=== PATIENT | female | born 1955 | race Hispanic/Latino ===

== ENCOUNTER 2017-10-20 20:15 | Emergency (ER) | payer MEDICARE ==
[~2017-10-20] VITALS: Ht 167.6 cm; Wt 129.7 kg
[~2017-10-20 20:15] MED LIST: ADULT LOW DOSE81 MG PO; ADVAIR 250-501 EACH INH; ALBUTEROL INH; ALBUTEROL2.5 MG/3 M INH; ALLOPURINOL300 MG PO; ATENOLOL50 MG PO; DICYCLOMINE HCL10 MG PO; GABAPENTIN300 MG PO; GLUCOPHAGE1000 MG PO; GLUCOTROL10 MG PO; KLONOPIN0.5 MG PO; KOMBIGLYZE XR1 EACH PO; LANTUS100 UNITS/ SQ; LOSARTAN POTAS100 MG PO; LYRICA150 MG PO; NAPROXEN250 MG PO; OMEGA 3 1,0001 EACH PO; SERTRALINE HCL50 MG PO; SUCRALFATE1 GM PO; ULTRAM50 MG PO; UROCIT-K10 MEQ PO; ZYLOPRIM300 MG PO; [UNRECOGNIZED DRUG - OTHER] TOP
[2017-10-20] MEDS ORDERED: ONDANSETRON HCL INJ 2 MG/ML VIAL IV STA (20:20)
[2017-10-20] MEDS ORDERED: DIATRIZOATE MEGL/DIATRIZOA SOD 30 ML BTL PO ONE (20:27)
[2017-10-20] MEDS ORDERED: SODIUM CHLORIDE 0.9% 1000ML 1,000 ML IV ONE (20:30)
[2017-10-20] MEDS ORDERED: PANTOPRAZOLE 40 MG 10ML VIAL IV ONE (20:30)
[2017-10-20 20:47] LABS: BASOPHILS % 0.3 % (0.0-1.0); EOSINOPHILS # (AUTO) 0.2 (0.0-0.4); EOSINOPHILS % 2.6 % (0.0-6.0); HEMATOCRIT 41.1 % (34.2-44.1); HEMOGLOBIN 13.3 g/dL (12.0-16.0); LYMPHOCYTES % 31.6 % (18.0-39.1); MEAN CORPUSCULAR HEMOGLOBIN 29.6 pg (28-32); MEAN CORPUSCULAR HGB CONC 32.4 g/dL (31-35); MEAN CORPUSCULAR VOLUME 91.3 fL (81-99); MONOCYTES # (AUTO) 0.4 (0.2-0.8); MONOCYTES % 5.8 % (4.4-11.3); NEUTROPHILS # (AUTO) 3.8 (2.1-6.9); NEUTROPHILS % 59.5 % (38.7-80.0); PLATELET COUNT 157 x10e3/uL (140-360); RED CELL DISTRIBUTION WIDTH 13.3 % (11.7-14.4)
[2017-10-20 20:48] LABS: CLARITY,URINE SL CLOUDY (CLEAR); COLOR,URINE YELLOW (YELLOW); KETONES,URINE TRACE (NEGATIVE); LEUKOCYTE ESTERASE ,URINE NEGATIVE (NEGATIVE); NITRITE,URINE NEGATIVE (NEGATIVE); PROTEIN,URINE DIPSTICK 1+ (NEGATIVE); URINE UROBILINOGEN 0.2 mg/dL (0.2 - 1)
[2017-10-20 20:49] LABS: BILIRUBIN,URINE 2+ (NEGATIVE)
[2017-10-20 20:59] LABS: AMORPHOUS SEDIMENT,URINE MODERATE (FEW); BACTERIA,URINE MANY /HPF; EPITHELIAL CELLS,URINE MANY /LPF
[2017-10-20 21:10] LABS: ALBUMIN 3.9 g/dL (3.5-5.0); CALCIUM 10.1 mg/dL (8.4-10.2); CREATININE, SERUM 1.52 mg/dL (0.57-1.11)
[2017-10-20 21:17] LABS: CREATINE KINASE MB 0.8 ng/mL (0-5.0)
--- NOTE | 2017-10-20 22:37 | Diagnostic Imaging Report ---
EXAM: CT Abdomen and Pelvis WITHOUT contrast INDICATION: Abdominal pain. COMPARISON: None. TECHNIQUE: Abdomen and pelvis were scanned utilizing a multidetector helical scanner from the lung base to the pubic symphysis without administration of IV contrast. Absence of intravenous contrast decreases sensitivity for detection of focal lesions and vascular pathology. Coronal and sagittal reformations were obtained. Routine protocol was performed. IV CONTRAST: None. ORAL CONTRAST: Gastrografin RADIATION DOSE: Total DLP: 828 mGy*cm Estimated effective dose: (DLP x 0.015 x size factor) mSv COMPLICATIONS: None FINDINGS: LINES and TUBES: None. LOWER THORAX: Unremarkable HEPATOBILIARY: No focal hepatic lesions. No biliary ductal dilation. GALLBLADDER: There are cholecystectomy clips. SPLEEN: No splenomegaly. PANCREAS: No focal masses or ductal dilatation. ADRENALS: No adrenal nodules KIDNEYS/URETERS: The kidneys appear lobular with evidence of cortical thinning predominantly in the right. No hydronephrosis. No cystic or solid mass lesions. There is a 5 mm stone in the inferior renal collecting system of the right kidney. Additional punctate calcifications noted bilaterally. GI TRACT: No abnormal distention, wall thickening, or evidence of bowel obstruction. Appendix is normal. PELVIC ORGANS/BLADDER: There are postop changes of hysterectomy and bilateral oophorectomies. LYMPH NODES: No lymphadenopathy. VESSELS: There is mild atherosclerotic disease in the aorta and major arterial branches. PERITONEUM / RETROPERITONEUM: No free air or fluid. BONES: There are mild degenerative changes in the lumbar spine. SOFT TISSUES: Minimal periumbilical fat stranding best seen on series 2, image 63 . Small eventration due to rectus abdominis muscle diastases in the umbilical region. IMPRESSION: 1. No acute intra-abdominal or pelvic abnormality. 2. 5 mm nephrolithiasis in the intrarenal collecting system of the right kidney. 3. Diffuse hepatic steatosis. Signed by: Dr. Qamar Cochran M.D. on 10/20/2017 10:34 PM
== END 2017-10-20 22:50 | disposition home or self-care (01) ==
LOC: ER 20:15
DX: R10.10 Upper abdominal pain, unspecified (principal); R19.7 Diarrhea, unspecified; R11.0 Nausea; I10 Essential (primary) hypertension; E11.9 Type 2 diabetes mellitus without complications; Z85.42 Personal history of malignant neoplasm of other parts of uterus
CPT/HCPCS: 36415; 74176; 80053; 81001; 82150; 82550; 82553; 83690; 84484; 85025; 99284; J2405; J7030

== ENCOUNTER → 2017-11-17 | Outpatient (CLI) | payer MEDICARE ==
--- NOTE | 2017-11-18 09:12 | Diagnostic Imaging Report ---
Exam: Bone mineral density study. History: Osteopenia. Comparison: None Discussion: Evaluation of the left hip and lumbar spine was performed utilizing DEXA Hologic bone densitometer. The study is technically adequate. Left hip total bone mineral density: 1.090gm/cm2, T-score is 1.0, Z-score is 2.0. Left hip femoral neck bone mineral density: 0.949gm/cm2, T-score is 0.6, Z-score is 2.0. Lumbar spine total bone mineral density:1.040gm/cm2, T-score is-0.1, Z-score is 1.5. Impression: 1. Normal bone mineral density of the left hip, fracture risk is not increased. 2. Normal bone mineral density of the lumbar spine, fracture risk is not increased. Least significant change (LSC) for bone mineral density as provided by athletic turf worker is 0.023 g/cm2 for lumbar spine and 0.027 g/cm2 for total hip. The patient's fracture risk is compared to an age-matched control. Medical evaluation for secondary causes of low bone bone mineral density may be appropriate. Correlate clinically for the necessity and timing of the next bone mineral density study. Signed by: Dr. Dee Gallegos M.D. on 11/18/2017 9:09 AM
== END ==
LOC: MAMMO 13:06
PROVIDERS: ATTEND Specialist
DX: Z12.31 Encounter for screening mammogram for malignant neoplasm of breast (principal); Z13.820 Encounter for screening for osteoporosis
CPT/HCPCS: 77067; 77080

== ENCOUNTER → 2019-12-18 | Outpatient (CLI) | payer MEDICARE ==
--- NOTE | 2019-12-18 16:48 | Diagnostic Imaging Report ---
EXAM: CT Abdomen and Pelvis WITHOUT intravenous contrast INDICATION: ^[id number] ^[id number] ^HISTORY OF URNINARY CALCULUS. COMPARISON: 10/20/2017 TECHNIQUE: Abdomen and pelvis were scanned utilizing a multidetector helical scanner from the lung base to the pubic symphysis without administration of IV contrast. Coronal and sagittal reformations were obtained. Routine technique was performed. IV CONTRAST: None ORAL CONTRAST: None COMPLICATIONS: None RADIATION DOSE: Total DLP: 776 mGy*cm Dose modulation, iterative reconstruction, and/or weight based adjustment of the mA/kV was utilized to reduce the radiation dose to as low as reasonably achievable. FINDINGS: LOWER THORAX: Normal. HEPATOBILIARY: No focal hepatic lesions. No biliary ductal dilatation. Gallbladder is surgically absent. SPLEEN: No splenomegaly. PANCREAS: No focal masses or ductal dilatation. ADRENALS: No adrenal nodules. KIDNEYS/URETERS: There is a right interpolar 4. 5 mm calculus. A punctate 1 mm interpolar stone is noted on the right (axial image 48). Ureters are not dilated. No surrounding inflammatory changes are noted. Negative for hydronephrosis. Negative for ureteral stone is negative for bladder stone. PELVIC ORGANS/BLADDER: Urinary bladder is unremarkable. Uterus is surgically absent. Ovaries are surgically absent. PERITONEUM / RETROPERITONEUM: No free air or fluid. LYMPH NODES: No lymphadenopathy. VESSELS: Negative for abdominal aortic aneurysm. GI TRACT: Limited due to lack of oral and IV contrast. Negative for small bowel obstruction. No surrounding inflammatory changes are noted. Portions of the colon are decompressed limiting evaluation. Normal appendix is noted. BONES AND SOFT TISSUES: No acute osseous abnormality. Focal moderate degenerative changes noted at L5-S1 with vacuum phenomenon and facet arthropathy. No suspicious destructive lesion is identified. Soft tissues are unremarkable. IMPRESSION: Right interpolar 4-5 mm calculus, not significantly changed since prior exam. Additional punctate 1 mm interpolar stone is also visualized, not confidently visualized on the prior exam. Negative for hydronephrosis. Negative for ureteral or bladder stone. Signed by: Pedro Pablo Santos MD on 12/18/2019 4:45 PM
== END ==
LOC: CT 15:53
PROVIDERS: ATTEND Urology
DX: N20.0 Calculus of kidney (principal)
CPT/HCPCS: 74176

== ENCOUNTER → 2020-03-05 | Day surgery (SDC) | payer MEDICARE ==
[~2020-03-05] MED LIST changes: +ALBUTEROL0.63 MG/3 NEB; +DEXTROSE 5% 250ML 250 ML IV ONE; +FAMOTIDINE 20 MG/2 ML VIAL IV ONE; +GLIMEPIRIDE4 MG PO; +JANUVIA100 MG PO; +LIDOCAINE HCL 2% LOCAL INJ 5 ML SDV VIAL INJ ONE; +METOCLOPRAMIDE HCL 10 MG/2ML VIAL ONE; +PROPOFOL IV EMULSION 10 MG/ML 20 ML VIAL ONE; +SODIUM CHLORIDE 0.9% 50ML 50 ML ONE; +TRULICITY0.75 MG/0. SC; +VIT D3 PO
[2020-03-05 13:07] VITALS: BP 136/81
== END | disposition home or self-care (01) ==
LOC: OR 09:35
PROVIDERS: ATTEND Internal Medicine Gastroenterology
DX: K29.70 Gastritis, unspecified, without bleeding (principal); K21.00 Gastro-esophageal reflux disease with esophagitis, without bleeding; K44.9 Diaphragmatic hernia without obstruction or gangrene; R19.7 Diarrhea, unspecified; R63.0 Anorexia; E11.22 Type 2 diabetes mellitus with diabetic chronic kidney disease; I12.9 Hypertensive chronic kidney disease with stage 1 through stage 4 chronic kidney disease, or unspecified chronic kidney disease; N18.9 Chronic kidney disease, unspecified; J45.909 Unspecified asthma, uncomplicated; M19.90 Unspecified osteoarthritis, unspecified site; F32.9 Major depressive disorder, single episode, unspecified; Z88.6 Allergy status to analgesic agent; Z88.8 Allergy status to other drugs, medicaments and biological substances; Z01.810 Encounter for preprocedural cardiovascular examination; Z01.812 Encounter for preprocedural laboratory examination; Z20.822 Contact with and (suspected) exposure to COVID-19; Z79.4 Long term (current) use of insulin; Z68.42 Body mass index [BMI] 45.0-49.9, adult; Z83.79 Family history of other diseases of the digestive system
CPT/HCPCS: 36415; 43239; 82948; 88305; 88312; 93005; J2001; J2704; J2765; J7070; U0002

== ENCOUNTER 2020-06-26 19:27 | Observation (INO) | payer MEDICARE ==
[~2020-06-26] VITALS: Ht 167.6 cm; Wt 140.2 kg
[~2020-06-26 19:27] MED LIST changes: -DEXTROSE 5% 250ML 250 ML IV ONE; -FAMOTIDINE 20 MG/2 ML VIAL IV ONE; -LIDOCAINE HCL 2% LOCAL INJ 5 ML SDV VIAL INJ ONE; -METOCLOPRAMIDE HCL 10 MG/2ML VIAL ONE; -PROPOFOL IV EMULSION 10 MG/ML 20 ML VIAL ONE; -SODIUM CHLORIDE 0.9% 50ML 50 ML ONE
[2020-06-26] MEDS ORDERED: ASPIRIN 81 MG CHEW TAB PO ONE ×2 (19:45→22:15)
[2020-06-26 19:59] LABS: BASOPHILS % 0.4 % (0.0-1.0); EOSINOPHILS # (AUTO) 0.3 (0.0-0.4); EOSINOPHILS % 5.5 % (0.0-6.0); HEMATOCRIT 36.5 % (34.2-44.1); HEMOGLOBIN 11.4 g/dL (12.0-16.0); LYMPHOCYTES # (AUTO) 2.1 (1.0-3.2); LYMPHOCYTES % 40.3 % (18.0-39.1); MEAN CORPUSCULAR HEMOGLOBIN 29.2 pg (28-32); MEAN CORPUSCULAR HGB CONC 31.2 g/dL (31-35); MEAN CORPUSCULAR VOLUME 93.6 fL (81-99); MONOCYTES # (AUTO) 0.4 (0.2-0.8); MONOCYTES % 6.6 % (4.4-11.3); NEUTROPHILS # (AUTO) 2.5 (2.1-6.9); NEUTROPHILS % 46.6 % (38.7-80.0); PLATELET COUNT 183 x10e3/uL (140-360); RED CELL DISTRIBUTION WIDTH 13.6 % (11.7-14.4)
[2020-06-26 20:04] LABS: INR 0.82; PROTHROMBIN TIME 11.9 seconds (11.9-14.5)
[2020-06-26 20:05] LABS: PARTIAL THROMBOPLASTIN TIME 26.6 seconds (23.8-35.5)
[2020-06-26 20:13] LABS: ALANINE AMINOTRANSFERASE 19 IU/L (0-55); ALBUMIN 3.3 g/dL (3.5-5.0); ALBUMIN/GLOBULIN RATIO 0.9 (0.8-2.0); ALKALINE PHOSPHATASE 105 IU/L (40-150); ANION GAP 14.9 mmol/L (8-16); BLOOD UREA NITROGEN 26 mg/dL (7-26); BUN/CREATININE RATIO 18 (6-25); CALCIUM 9.8 mg/dL (8.4-10.2); CARBON DIOXIDE 28 mmol/L (22-29); CHLORIDE 106 mmol/L (98-107); CREATINE KINASE 56 IU/L (29-168); CREATININE, SERUM 1.47 mg/dL (0.57-1.11); EST GLOMERULAR FILTRATION RATE 36 ML/MIN (60-); GLUCOSE 98 mg/dL (74-118); POTASSIUM 4.9 mmol/L (3.5-5.1); SODIUM 144 mmol/L (136-145)
[2020-06-26] MEDS ORDERED: SODIUM CHLORIDE FLUSH 10 ML SYR INJ PRN (22:15)
[2020-06-26] MEDS ORDERED: ONDANSETRON HCL INJ 2MG/ML 2ML 2 MG/ML VIAL IV PRN (22:15)
[2020-06-27] VITALS (10 sets, daily range): BP systolic 118–139; BP diastolic 56–79
[2020-06-27] MEDS: DEXTROSE 50% SYRINGE 50 ML IV PRN ×2 (00:10→06:45)
[2020-06-27] MEDS ORDERED: GABAPENTIN 300 MG CAP PO ONE (01:15)
[2020-06-27] MEDS: MORPHINE SULFATE INJ 2 MG/ML SYR IV PRN (01:38)
[2020-06-27] MEDS ORDERED: PROAIR HFA INH8.5 GM INH (02:10)
[2020-06-27] MEDS ORDERED: METHOCARBAMOL750 MG PO (02:10)
[2020-06-27] MEDS ORDERED: MONTELUKAST SOD10 MG PO (02:10)
[2020-06-27] MEDS ORDERED: ASPIRIN81 MG PO (02:10)
[2020-06-27] MEDS ORDERED: KLONOPIN0.5 MG PO (02:10)
[2020-06-27] MEDS ORDERED: PIOGLITAZONE HC45 MG PO (02:10)
[2020-06-27] MEDS ORDERED: NOVOLOG100 UNIT/1 SC (02:11)
[2020-06-27 05:04] LABS: BASOPHILS % 0.6 % (0.0-1.0); EOSINOPHILS # (AUTO) 0.3 (0.0-0.4); EOSINOPHILS % 4.8 % (0.0-6.0); HEMOGLOBIN 10.5 g/dL (12.0-16.0); LYMPHOCYTES # (AUTO) 2.1 (1.0-3.2); LYMPHOCYTES % 40.5 % (18.0-39.1); MEAN CORPUSCULAR HEMOGLOBIN 28.9 pg (28-32); MEAN CORPUSCULAR HGB CONC 30.9 g/dL (31-35); MEAN CORPUSCULAR VOLUME 93.7 fL (81-99); MONOCYTES # (AUTO) 0.5 (0.2-0.8); MONOCYTES % 8.6 % (4.4-11.3); NEUTROPHILS # (AUTO) 2.4 (2.1-6.9); NEUTROPHILS % 45.1 % (38.7-80.0); PLATELET COUNT 165 x10e3/uL (140-360); RED BLOOD COUNT 3.63 x10e6/uL (3.6-5.1); RED CELL DISTRIBUTION WIDTH 13.8 % (11.7-14.4)
[2020-06-27 05:28] LABS: ALBUMIN 2.9 g/dL (3.5-5.0); ALBUMIN/GLOBULIN RATIO 0.9 (0.8-2.0); ANION GAP 13.7 mmol/L (8-16); CALCIUM 9.5 mg/dL (8.4-10.2); CHOL/HDL RATIO 2.5 (3.0-3.6); CREATININE, SERUM 1.41 mg/dL (0.57-1.11); POTASSIUM 4.7 mmol/L (3.5-5.1)
[2020-06-27 05:42] LABS: CREATINE KINASE 49 IU/L (29-168)
[2020-06-27] MEDS ORDERED: INSULIN REGULAR, HUMAN 100 UNIT/1 ML 3ML VIAL SQ SCH (07:30)
[2020-06-27] MEDS: GABAPENTIN 300 MG CAP PO SCH ×3 (08:29→20:34)
[2020-06-27] MEDS ORDERED: ALBUTEROL SULFATE HFA 8GM INHALATION AEROSOL INH PRN (09:15)
[2020-06-27] MEDS ORDERED: ALBUTEROL SULF 0.083% NEB SOLN 3 ML NEB NEB PRN (09:15)
[2020-06-27] MEDS ORDERED: CLONAZEPAM 0.5 MG TAB PO PRN (09:15)
[2020-06-27] MEDS ORDERED: METHOCARBAMOL 500 MG TAB PO PRN (09:15)
[2020-06-27] MEDS ORDERED: TRAMADOL HCL 50 MG TAB PO PRN (09:15)
[2020-06-27] MEDS ORDERED: DEXTROSE 50% SYRINGE 50 ML IV PRN (09:30)
[2020-06-27] MEDS: LOSARTAN POTASSIUM 100 MG TAB PO SCH (10:28)
[2020-06-27] MEDS: INSULIN LISPRO 100 UNIT/1 ML 3ML VIAL SQ SCH ×5 (11:30→20:23)
[2020-06-27] MEDS ORDERED: GABAPENTIN 300 MG CAP PO SCH (15:00)
[2020-06-27 15:05] LABS: CREATINE KINASE 51 IU/L (29-168)
[2020-06-27] MEDS: INSULIN GLARGINE 100 UNITS/ML VIAL SQ SCH (20:30)
[2020-06-27] MEDS ORDERED: MONTELUKAST SODIUM 10 MG TAB PO SCH (21:00)
[2020-06-27] MEDS ORDERED: ATENOLOL 50 MG TAB PO SCH (21:00)
[2020-06-28 00:25] VITALS: BP 130/72
[2020-06-28 05:06] VITALS: BP 114/66
[2020-06-28] MEDS: INSULIN LISPRO 100 UNIT/1 ML 3ML VIAL SQ SCH ×4 (07:30→11:30)
[2020-06-28] MEDS: INSULIN GLARGINE 100 UNITS/ML VIAL SQ SCH (08:11)
[2020-06-28] MEDS: LOSARTAN POTASSIUM 100 MG TAB PO SCH (08:13)
[2020-06-28] MEDS: GABAPENTIN 300 MG CAP PO SCH (08:13)
[2020-06-28 08:15] VITALS: BP 133/78
[2020-06-28 08:20] VITALS: BP 133/78
[2020-06-28] MEDS: MORPHINE SULFATE INJ 2 MG/ML SYR IV PRN (08:50)
[2020-06-28] MEDS ORDERED: ASPIRIN 81 MG CHEW TAB PO SCH (09:00)
[2020-06-28] MEDS ORDERED: LOSARTAN POTASSIUM 100 MG TAB PO SCH (09:00)
[2020-06-28] MEDS ORDERED: SERTRALINE HCL 50 MG TAB PO SCH (09:00)
[2020-06-28 11:59] VITALS: BP 138/50
[2020-06-28 15:10] VITALS: BP 107/52
== END 2020-06-28 16:14 | disposition home or self-care (01) ==
LOC: ER 21:07 → ERHOLD 22:10 → MED/SURG3 06-27 01:01
PROVIDERS: ADMIT Internal Medicine; ATTEND Internal Medicine
DX: R07.89 Other chest pain (principal); I12.9 Hypertensive chronic kidney disease with stage 1 through stage 4 chronic kidney disease, or unspecified chronic kidney disease; E11.22 Type 2 diabetes mellitus with diabetic chronic kidney disease; E11.649 Type 2 diabetes mellitus with hypoglycemia without coma; N18.9 Chronic kidney disease, unspecified; E66.01 Morbid (severe) obesity due to excess calories; E78.5 Hyperlipidemia, unspecified; Z85.42 Personal history of malignant neoplasm of other parts of uterus; Z88.5 Allergy status to narcotic agent; Z88.8 Allergy status to other drugs, medicaments and biological substances; Z79.4 Long term (current) use of insulin; Z68.42 Body mass index [BMI] 45.0-49.9, adult; Z96.653 Presence of artificial knee joint, bilateral; Z20.822 Contact with and (suspected) exposure to COVID-19
CPT/HCPCS: 36415 ×3; 71045; 80053 ×2; 80061; 82550 ×2; 82553 ×2; 82948 ×3; 83880; 84484 ×2; 85025 ×2; 85379; 85610; 85730; 86140; 93005; 93306; 96374; 96376; 99284; G0378 ×3; J1815; J2270 ×2; J7799; U0002

== ENCOUNTER 2020-11-04 16:29 | Emergency (ER) | payer MEDICARE ==
[~2020-11-04] VITALS: Ht 167.6 cm; Wt 131.1 kg
[~2020-11-04 16:29] MED LIST changes: +ASPIRIN81 MG PO; +METHOCARBAMOL750 MG PO; +MONTELUKAST SOD10 MG PO; +NOVOLOG100 UNIT/1 SC; +PIOGLITAZONE HC45 MG PO; +PROAIR HFA INH8.5 GM INH
[2020-11-04] MEDS ORDERED: SODIUM CHLORIDE 0.9% 1000ML 500 ML IV STA (17:01)
[2020-11-04 17:28] LABS: BASOPHILS % 0.6 % (0.0-1.0); EOSINOPHILS # (AUTO) 0.2 (0.0-0.4); EOSINOPHILS % 4.9 % (0.0-6.0); HEMATOCRIT 39.5 % (34.2-44.1); HEMOGLOBIN 12.9 g/dL (12.0-16.0); LYMPHOCYTES # (AUTO) 1.9 (1.0-3.2); LYMPHOCYTES % 37.7 % (18.0-39.1); MEAN CORPUSCULAR HEMOGLOBIN 29.5 pg (28-32); MEAN CORPUSCULAR HGB CONC 32.7 g/dL (31-35); MEAN CORPUSCULAR VOLUME 90.2 fL (81-99); MONOCYTES # (AUTO) 0.3 (0.2-0.8); MONOCYTES % 5.3 % (4.4-11.3); NEUTROPHILS # (AUTO) 2.5 (2.1-6.9); NEUTROPHILS % 50.9 % (38.7-80.0); PLATELET COUNT 163 x10e3/uL (140-360); RED BLOOD COUNT 4.38 x10e6/uL (3.6-5.1); RED CELL DISTRIBUTION WIDTH 13.3 % (11.7-14.4)
[2020-11-04 17:34] LABS: CLARITY,URINE SL CLOUDY (CLEAR); COLOR,URINE YELLOW (YELLOW)
[2020-11-04 17:35] LABS: KETONES,URINE NEGATIVE (NEGATIVE); LEUKOCYTE ESTERASE ,URINE NEGATIVE (NEGATIVE); NITRITE,URINE NEGATIVE (NEGATIVE); PROTEIN,URINE DIPSTICK 2+ (NEGATIVE); URINE UROBILINOGEN 0.2 mg/dL (0.2 - 1)
[2020-11-04 17:46] LABS: BACTERIA,URINE MANY /HPF; EPITHELIAL CELLS,URINE MODERATE /LPF; RBC,URINE 0-5 /HPF (0-5)
[2020-11-04 17:49] LABS: ALANINE AMINOTRANSFERASE 22 IU/L (0-55); ALBUMIN 3.5 g/dL (3.5-5.0); ALKALINE PHOSPHATASE 112 IU/L (40-150); ANION GAP 14.9 mmol/L (8-16); BLOOD UREA NITROGEN 19 mg/dL (7-26); BUN/CREATININE RATIO 13 (6-25); CALCIUM 9.5 mg/dL (8.4-10.2); CARBON DIOXIDE 28 mmol/L (22-29); CHLORIDE 105 mmol/L (98-107); CREATINE KINASE 37 IU/L (29-168); CREATININE, SERUM 1.43 mg/dL (0.57-1.11); EST GLOMERULAR FILTRATION RATE 37 ML/MIN (60-); GLUCOSE 150 mg/dL (74-118); POTASSIUM 3.9 mmol/L (3.5-5.1); SODIUM 144 mmol/L (136-145)
[2020-11-04] MEDS ORDERED: IBUPROFEN 600 MG TAB PO NR (19:30)
== END 2020-11-04 19:30 | disposition home or self-care (01) ==
LOC: ER 17:29
DX: R51.9 Headache, unspecified (principal); E11.65 Type 2 diabetes mellitus with hyperglycemia; I10 Essential (primary) hypertension; R11.0 Nausea; Z20.822 Contact with and (suspected) exposure to COVID-19
CPT/HCPCS: 36415; 70450; 71045; 80053; 81001; 82550; 82553; 84484; 85025; 93005; 99284; U0002

== ENCOUNTER 2021-03-17 22:33 | Emergency (ER) | payer MEDICARE ==
[~2021-03-17] VITALS: Ht 167.6 cm; Wt 131.1 kg
[2021-03-17] MEDS ORDERED: TRAMADOL HCL 50 MG TAB PO ONE (22:45)
[2021-03-17] MEDS ORDERED: TRAMADOL HCL 50 MG TAB ONE (22:58)
[2021-03-18] MEDS ORDERED: ULTRAM 50MG50 MG PO (00:36)
== END 2021-03-18 00:53 | disposition home or self-care (01) ==
LOC: ER 22:42
DX: S82.832A Other fracture of upper and lower end of left fibula, initial encounter for closed fracture (principal); S80.02XA Contusion of left knee, initial encounter; M25.552 Pain in left hip; W18.2XXA Fall in (into) shower or empty bathtub, initial encounter; Y93.E1 Activity, personal bathing and showering; Y92.002 Bathroom of unspecified non-institutional (private) residence as the place of occurrence of the external cause; I12.9 Hypertensive chronic kidney disease with stage 1 through stage 4 chronic kidney disease, or unspecified chronic kidney disease; E11.22 Type 2 diabetes mellitus with diabetic chronic kidney disease; N18.9 Chronic kidney disease, unspecified; E11.40 Type 2 diabetes mellitus with diabetic neuropathy, unspecified; Z96.653 Presence of artificial knee joint, bilateral
CPT/HCPCS: 99283

== ENCOUNTER 2021-07-17 15:35 | Emergency (ER) | payer MEDICARE, OTHER ==
[~2021-07-17] VITALS: Ht 167.6 cm; Wt 131.1 kg
[~2021-07-17 15:35] MED LIST changes: +ULTRAM 50MG50 MG PO
[2021-07-17] MEDS ORDERED: TRAMADOL HCL 50 MG TAB PO ONE (18:00)
== END 2021-07-17 18:51 | disposition home or self-care (01) ==
LOC: ER 16:02
DX: M25.562 Pain in left knee (principal); M25.561 Pain in right knee; M25.572 Pain in left ankle and joints of left foot; W01.0XXA Fall on same level from slipping, tripping and stumbling without subsequent striking against object, initial encounter; Y93.01 Activity, walking, marching and hiking; Y92.89 Other specified places as the place of occurrence of the external cause; I12.9 Hypertensive chronic kidney disease with stage 1 through stage 4 chronic kidney disease, or unspecified chronic kidney disease; E11.22 Type 2 diabetes mellitus with diabetic chronic kidney disease; N18.9 Chronic kidney disease, unspecified; E11.40 Type 2 diabetes mellitus with diabetic neuropathy, unspecified; Z96.653 Presence of artificial knee joint, bilateral
CPT/HCPCS: 99283

== ENCOUNTER 2024-11-26 17:37 | Emergency (ER) | payer MEDICARE ==
[~2024-11-26] VITALS: Ht 167.6 cm; Wt 118.4 kg
[2024-11-26 18:13] VITALS: TEMP 98.7
[2024-11-26 18:45] LABS: BASOPHILS % 0.2 % (0.0-1.0); EOSINOPHILS % 3.3 % (0.0-6.0); LYMPHOCYTES % 35.7 % (18.0-39.1); MONOCYTES % 7.9 % (4.4-11.3); NEUTROPHILS % 52.7 % (38.7-80.0); RED CELL DISTRIBUTION WIDTH 13.3 % (11.7-14.4)
[2024-11-26 18:57] LABS: EST GLOMERULAR FILTRATION RATE 31.0 ML/MIN (>=60)
[2024-11-26] MEDS: ONDANSETRON HCL INJ 2MG/ML 2ML 2 MG/ML VIAL IV STA (19:33)
[2024-11-26] MEDS: SODIUM CHLORIDE 0.9% 1000ML 1,000 ML IV ONE (19:34)
[2024-11-26 21:07] VITALS: PULSE 82; RESP 13
[2024-11-26] MEDS ORDERED: PANTOPRAZOLE SO40 MG PO (21:37)
[2024-11-26] MEDS ORDERED: ONDANSETRON ODT4 MG SL (21:37)
[2024-11-26 21:50] VITALS: BP 147/68; PULSE 77; RESP 13; O2SAT 100
== END 2024-11-26 21:47 | disposition home or self-care (01) ==
LOC: ER 18:32
DX: R10.10 Upper abdominal pain, unspecified (principal); R11.2 Nausea with vomiting, unspecified; R19.7 Diarrhea, unspecified; I12.9 Hypertensive chronic kidney disease with stage 1 through stage 4 chronic kidney disease, or unspecified chronic kidney disease; E11.22 Type 2 diabetes mellitus with diabetic chronic kidney disease; E11.65 Type 2 diabetes mellitus with hyperglycemia; N18.9 Chronic kidney disease, unspecified; J45.909 Unspecified asthma, uncomplicated; E11.40 Type 2 diabetes mellitus with diabetic neuropathy, unspecified; R94.31 Abnormal electrocardiogram [ECG] [EKG]; Z85.42 Personal history of malignant neoplasm of other parts of uterus; Z87.19 Personal history of other diseases of the digestive system
CPT/HCPCS: 36415; 74176; 80053; 82948; 83690; 84484; 85025; 93005; 99284; J2405; J2470; J7030